=== PATIENT | male | born 1955 ===

== ENCOUNTER 2017-12-08 07:37 | Outpatient (CLI) | payer OTHER ==
[~2017-12-08] VITALS: Ht 175.3 cm; Wt 80.7 kg
== END 2017-12-08 07:50 | disposition home or self-care (01) ==
LOC: OFIC 805 07:37
DX: R09.81 Nasal congestion (principal); J33.8 Other polyp of sinus; J01.80 Other acute sinusitis

== ENCOUNTER 2018-02-22 07:57 | Outpatient (CLI) | payer OTHER ==
[~2018-02-22] VITALS: Ht 152.4 cm; Wt 80.7 kg
== END 2018-02-22 08:10 | disposition home or self-care (01) ==
LOC: OFIC 805 07:57
DX: R09.81 Nasal congestion (principal); J33.8 Other polyp of sinus; J32.8 Other chronic sinusitis